=== PATIENT | female | born 1945 | race Caucasian/White ===

== ENCOUNTER 2016-09-27 23:32 | Emergency (ER) | payer MEDICARE ==
[~2016-09-27] VITALS: Ht 165.1 cm; Wt 83.0 kg
[2016-09-27 23:39] VITALS: BP 144/84; PULSE 76; RESP 16; TEMP 99.1; O2SAT 96
[2016-09-27 23:49] VITALS: BP 144/84; PULSE 76; RESP 18; TEMP 99.1; O2SAT 96
[2016-09-28] MEDS ORDERED: IBUPROFEN 400 MG TAB PO ONE (00:15)
--- NOTE | 2016-09-28 00:55 | RADHPO ---
EXAM DATE/TIME: 09/28/2016 00:30 [facility] COMPARISON: WRIST LEFT COMPLETE ([id number]), September 28, 2016, 0:34. INDICATIONS : Patient states she fell, left hand pain. MEDICAL HISTORY : None. SURGICAL HISTORY : None. ENCOUNTER: Initial ACUITY: 1 day PAIN SCORE: 3/10 LOCATION: Left Hand FINDINGS: The hand itself is intact. A fracture of the radial styloid is present. Intra-articular extension of the fracture is present.Carpal bones are unremarkable. CONCLUSION: 1. Radial styloid fracture Chauncey Mccartney MD on September 28, 2016 at 0:53 Board Certified Radiologist. This report was verified electronically.
--- NOTE | 2016-09-28 00:56 | RADHPO ---
EXAM DATE/TIME: 09/28/2016 00:34 [facility] COMPARISON: No previous studies available for comparison. INDICATIONS : Patient states she fell, left wrist pain. MEDICAL HISTORY : None. SURGICAL HISTORY : None. ENCOUNTER: Initial ACUITY: 1 day PAIN SCORE: 7/10 LOCATION: Left Wrist FINDINGS: There is a fracture the radial styloid and distal radius with intra-articular extension. Carpal bones are intact. Bony mineralization is normal. CONCLUSION: 1. Distal radius fracture with intra-articular extension. Chauncey Mccartney MD on September 28, 2016 at 0:54 Board Certified Radiologist. This report was verified electronically.
--- NOTE | 2016-09-28 00:56 | RADHPO ---
EXAM DATE/TIME: 09/28/2016 00:35 [facility] COMPARISON: No previous studies available for comparison. INDICATIONS : Patient states she fell, left elbow pain. MEDICAL HISTORY : None. SURGICAL HISTORY : None. ENCOUNTER: Initial ACUITY: 1 day PAIN SCORE: 3/10 LOCATION: Left Elbow FINDINGS: Multiple view examination of the left elbow demonstrates no soft tissue swelling, joint effusion, or fracture. The osseous structures are in normal alignment. Bony mineralization is normal. CONCLUSION: 1. Negative examination of the elbow. Chauncey Mccartney MD on September 28, 2016 at 0:54 Board Certified Radiologist. This report was verified electronically.
[2016-09-28 00:59] VITALS: BP 165/84; PULSE 66; RESP 18; O2SAT 96
--- NOTE | 2016-09-28 01:12 | PD ---
HPI Chief Complaint: Fall Time Seen by Provider: 00:03 Travel History International Travel<30 days: No Contact w/Intl Traveler<30days: No Traveled to known affect area: No History of Present Illness HPI 71-year-old female arrives complaining of pain in the left shoulder, elbow, wrist and hand. She also has pain in the lateral left hip. She was getting out of the hot tub and slipped and fell upon her outstretched left hand. She fell backwards. No head injury occurred. Movement worsens the pain as does palpation and manipulation. The event occurred about an hour prior to ER arrival. Pain has been constant since. She was ambulatory afterwards. Onset sudden. Timing constant. PFSH Past Medical History Diminished Hearing: No Fibromyalgia: Yes GERD: Yes Glaucoma: Yes Immunizations Current: Yes Tetanus Vaccination: Unknown Influenza Vaccination: Yes ?: Not Menopausal: Yes Social History Alcohol Use: Yes Tobacco Use: No Substance Use: No Allergies-Medications (Allergen,Severity, Reaction): Coded Allergies: Hydrocodone (Verified Allergy, Severe, Hives, 09/27/16) Latex (Verified Allergy, Severe, Anaphylaxis, 09/27/16) Sulfa (Verified Allergy, Severe, Hives, 09/27/16) Reported Meds & Prescriptions Reported Meds & Active Scripts Active Ibuprofen 400 Mg Tab 400 Mg PO Q8H PRN Reported Lumigan Opth Drops (Bimatoprost) 0.01% Soln 1 Drop EACH EYE HS Restasis Multidose Opth (Cyclosporine Opth) 0.05% Emul Klonopin (Clonazepam) 0.5 Mg Tab 0.5 Mg PO HS Miralax (Polyethylene Glycol 3350) 1 Pow Pow Mirapex (Pramipexole Dihydrochloride) 0.25 Mg Tab 0.25 Mg PO HS Metoprolol Succinate ER 24 HR (Metoprolol Succinate) 25 Mg Tab 12.5 Mg PO BID Avapro (Irbesartan) 300 Mg Tab 300 Mg PO DAILY Review of Systems Except as stated in HPI: all other systems reviewed are Neg Physical Exam Narrative GENERAL: 71-year-old female, well-nourished well-developed SKIN: Warm and dry. HEAD: Atraumatic. Normocephalic. EYES: Pupils equal and round. No scleral icterus. No injection or drainage. ENT: No nasal bleeding or discharge. Mucous membranes pink and moist. NECK: Trachea midline. No JVD. CARDIOVASCULAR: Regular rate and rhythm. No murmur appreciated. RESPIRATORY: No accessory muscle use. Clear to auscultation. Breath sounds equal bilaterally. GASTROINTESTINAL: Abdomen soft, non-tender, nondistended. Hepatic and splenic margins not palpable. MUSCULOSKELETAL: Swelling tenderness about DRUJ on left side. Active flexion/ extension is painful though partially preserved. Active ROM at L elbow is grossly preserved however limited 2/2 pain. 2+ radial pulses bilaterally. Minimal tenderness to palpation overlying L greater trochanter. Minimal ecchymosis bout proximal L lateral thigh. Pt ambulatory. NEUROLOGICAL: Awake and alert. No obvious cranial nerve deficits. Normal speech. R/M/U sensory distributions preserved bilaterally. PSYCHIATRIC: Appropriate mood and affect; insight and judgment normal. Data Data Last Documented VS Vital Signs Date Time Temp Pulse Resp B/P Pulse Ox O2 Delivery O2 Flow Rate FiO2 09/28/16 02:08 69 18 146/75 96 Room Air 09/27/16 23:49 99.1 Orders Elbow, Complete (4 Vws) (09/28/16 00:07) Hand, Complete ([id number]) (09/28/16 00:07) Wrist, Complete ([id number]) (09/28/16 00:07) Ibuprofen (Motrin) (09/28/16 00:15) Support Splint (09/28/16 00:07) Ice / Cold Pack PRN (09/28/16 00:07) MDM Medical Decision Making Medical Screen Exam Complete: Yes Emergency Medical Condition: Yes Differential Diagnosis Hand fracture, wrist fracture, elbow fracture, contusion Narrative Course Last 24 hours Impressions Wrist X-Ray 09/28/166 Signed Impressions: Service Date/Time: Wednesday, September 28, 2016 00:34 - CONCLUSION: 1. Distal radius fracture with intra-articular extension. Chauncey Mccartney MD Hand X-Ray 09/28/166 Signed Impressions: Service Date/Time: Wednesday, September 28, 2016 00:30 - CONCLUSION: 1. Radial styloid fracture Chauncey Mccartney MD Elbow xray: No acute fracture Orthopedics called twice over course of one hour with no return call. Pt will unfortunately have to postpone a 10 day cruise planned for departure tomorrow. Evaluation by orthopedics service in next few days will be required. Motrin as needed for pain. Sugar tong splint applied with LUE sling. Diagnosis Primary Impression: Distal radius fracture, left Qualified Code: S52.572A - Other closed intra-articular fracture of distal end of left radius, initial encounter Additional Impression: Fall Qualified Code: W19.XXXA - Fall, initial encounter Referrals: Jah Olguin Jr., MD 3 days Additional Instructions: You have a choice when it comes to health care, and we are glad that you chose [facility]. Hopefully, we have met your expectations on today's visit. You are welcome to return to [facility] at any time, as we are committed to meeting the health care needs of our community. Med/Other Pt SpecificInfo: Prescription(s) given Scripts Ibuprofen 400 Mg [id number] Mg PO Q8H PRN (PAIN SCALE 6 TO 10) #20 TAB Ref 0 Prov:Kevni Munguia MD 09/28/16 Disposition: 01 DISCHARGE HOME Condition: Stable Kevin Munguia MD Sep 28, 2016 01:12
[2016-09-28 02:08] VITALS: BP 146/75; PULSE 69; RESP 18; O2SAT 96
[2016-09-28] MEDS ORDERED: CLON.5 PO (02:08)
[2016-09-28] MEDS ORDERED: MIRA3350 (02:08)
[2016-09-28] MEDS ORDERED: MIRA0.25 PO (02:08)
[2016-09-28] MEDS ORDERED: IRBE300T44 PO (02:08)
[2016-09-28] MEDS ORDERED: METO25TA6 PO (02:08)
[2016-09-28] MEDS ORDERED: LUMI0.01 EACH EYE (02:08)
[2016-09-28] MEDS ORDERED: CYCL7.5E (02:08)
[2016-09-28] MEDS ORDERED: IBUP400T20 PO (02:11)
== END 2016-09-28 02:30 | disposition home or self-care (01) ==
LOC: PHED 23:32
DX: S52.572A Other intraarticular fracture of lower end of left radius, initial encounter for closed fracture (principal); M25.522 Pain in left elbow; M25.512 Pain in left shoulder; W01.0XXA Fall on same level from slipping, tripping and stumbling without subsequent striking against object, initial encounter; Y93.89 Activity, other specified; Y92.9 Unspecified place or not applicable
CPT/HCPCS: 29125; 73080; 73110; 73130